=== PATIENT | female | born 1955 | race Hispanic/Latino ===

== ENCOUNTER 2016-07-31 08:08 | Outpatient (CLI) | payer BC ==
--- NOTE | 2016-07-31 08:57 | Mammography Report ---
Bilateral mammogram: Compared to 09/22/13. CAD study utilized. Findings: Predominance adipose tissue bilaterally. New microcalcification in right breast. Benign density right lower breast without interval change. No mass. Normal axilla. Impression: New microcalcification right breast. Recommend spot mag for further evaluation. BI-RADS CATEGORY: 0 = Needs additional imaging evaluation ACR BI-RADS MAMMOGRAPHIC CODES: 0 = Needs additional imaging evaluation; 1 = Negative; 2 = Benign; 3 = Probably benign; 4 = Suspicious; 5 = Malignant; 6 = Known biopsy-proven malignancy COMMENT: 1. Dense breast tissue, i.e., adenosis, fibrocystic changes, etc., may obscure an underlying neoplasm. 2. Approximately 10% of cancers are not detected with mammography. 3. A negative mammography report should not delay biopsy if a clinically suspicious mass is present. COMMENT: Patient follow-up letters are generated in [employer].
== END 2016-07-31 08:09 | disposition home or self-care (01) ==
LOC: SPVWC 08:08
DX: Z12.31 Encounter for screening mammogram for malignant neoplasm of breast (principal)
CPT/HCPCS: 77067; G0202